=== PATIENT | male | born 1995 | race Caucasian/White ===

== ENCOUNTER 2019-05-04 08:19 | Emergency (ER) | payer OTHER, SELFPAY ==
[2019-05-04 08:24] VITALS: BP 117/67; PULSE 88; RESP 12; TEMP 36.7; O2SAT 98
--- NOTE | 2019-05-04 08:39 | W.ED.GENAD ---
Discharge Plan Disposition Patient Disposition: HOME Condition: Stable Discharge Details Chief Complaint: Orthopedic Clinical Impression: Fracture of fifth metacarpal bone of right hand Primary Care Provider: Karo Hogan ED Provider: Yordy Johnson Home Meds and New Rx's Prescriptions: No Action No Known Home Meds RF: 0 Discharge Instructions Additional Instructions: 1. Drink plenty of fluids. 2. Continue all medications as prescribed. 3. Acetaminophen 1000mg every 4 hours (up to 5 time a day) and/or ibuprofen 600mg every 6 hours as needed for fever or pain. 4. Wear splint until orthopedic evaluation. Keep arm elevated. Avoid getting splint wet. Return to the Emergency Department (ED) if your condition worsens, does not improve as expected, or for ANY other concerns. Specifically, return if you have new or uncontrolled pain, worsening fever, difficulty breathing, vomiting, or are unable to drink fluids. Referrals: Francisco Mccloud MD [ [facility] STAFF PHYSICIAN] - Medical Decision Making Presents with right hand injury sustained at work. Exam and imaging consistent with a displaced fifth metacarpal fracture. Fracture reduced after ultrasound-guided regional anesthesia placed. Repeat x-ray document improved anatomic alignment. Discharged with a plan for outpatient orthopedic follow-up. Given usual and customary return instructions prior to discharge. Medical Records Medical records reviewed: Yes I reviewed the patient's medical records. Imaging Data Radiologic Study: Attestation: I personally reviewed and interpreted this imaging study as follows: Imaging: X-Ray (Right hand) My impression: Angulated distal fifth metacarpal fracture. Interpreted independently contemporaneously by myself. Radiologist's impression: Not available at time of clinical management/fracture reduction Radiologic Study #2: Attestation: I personally reviewed and interpreted this imaging study as follows: Imaging: X-Ray (Right hand, postreduction) My impression: Improved anatomical alignment. Reviewed independently contemporaneously by myself. Radiologist's impression: Same HPI 23-year-old gent with an unremarkable past medical history presents for evaluation of injury sustained at work this morning. He had a crush injury to his right hand with significant pain to his metacarpal phalangeal joints especially at the pinky finger. He has no significant deformity although he has superficial abrasions along the dorsal aspect of his fingers. He has focal pain at his pinky MCPJ. He denies other significant injury and he denies any loss of motion/loss of sensation distally. Flexion/extension is limited by pain. General Date/Time Provider Initiated Documentation: 05/04/19 08:33. Related Data Home Medications Medication Instructions Recorded Confirmed Unknown [No Known Home Meds] 07/01/13 05/04/19 Allergies Allergy/AdvReac Type Severity Reaction Status Date / Time No Known Allergies Allergy Unverified 05/04/19 08:26 General Stated Complaint: Orthopedic SAMANTHA: 4 Review of Systems All systems reviewed & are unremarkable except as noted in HPI and below PFSH Social History Smoking/Tobacco Use Status: Never Alcohol Intake: never Drug use: Never Substance use type: does not use Do you feel safe at home: Yes Do you feel safe in your relationship?: Yes Exam Narrative Exam Narrative: Nursing note and vital signs have been reviewed and noted. GENERAL: alert, active, no acute distress, well -hydrated, well-nourished HEENT: atraumatic/normocephalic, PERRLA, EOMI, conjunctiva clear, external ears/canals normal, nasal mucosa normal NECK: supple, full range of motion CARDIOVASCULAR: nl pulses, no edema PULMONARY: nl effort, no audible wheezing or stridor ABDOMEN: non-distended EXTREMITY: normal muscle tone, all joints with FROM, right hand: Minimal tenderness along the MCP joints except for at the pinky with significant tenderness at the joint and proximally along the metacarpal. No significant soft tissue swelling or ecchymosis. There are multiple superficial abrasions along the dorsal aspect of the phalanxes. No evidence of tendon disruption by passive and active exam. Also normal neurovascular exam distal to the injury. NUERO: normal mentation, moving all extremities, normal stance and gait, PSYCH: alert and oriented SKIN: no new rashes or lesions Course Vital Signs Vital signs: Vital Signs Temperature 98.1 F 05/04/19 08:24 Pulse 88 05/04/19 08:24 Respiratory Rate 12 05/04/19 08:24 Blood Pressure 117/67 05/04/19 08:24 Pulse Oximetry 98 05/04/19 08:24 Temperature 98.1 F 05/04/19 08:24 Temperature Source Temporal Artery Scan 05/04/19 08:24 Pulse 88 05/04/19 08:24 Respiratory Rate 12 05/04/19 08:24 Respiratory Effort Non-Labored 05/04/19 08:25 Blood Pressure 117/67 05/04/19 08:24 Blood Pressure Position Sitting 05/04/19 08:24 Pulse Oximetry 98 05/04/19 08:24 Oxygen Delivery Method Room Air 05/04/19 08:24 Oxygen Flow Rate 0 05/04/19 08:24 Pain Level 8 05/04/19 08:26 Procedures Orthopedic Fracture Reduction Fracture #1: Time Out Performed: Yes Side: right Fracture Reduction Location: metacarpal (Fifth) Analgesia: other (Ulnar nerve block) Technique: direct manipulation Post Reduction X-rays Demonstrate: acceptable reduction Post-reduction neuro exam: intact Post-reduction vascular exam: intact Splint Applied: Yes Patient Tolerated Procedure: well Other Description: Ultrasound-guided ulnar nerve block. Ulnar nerve and surrounding structures in the right forearm were visualized sonographically. Both the transducer and skin were prepped in sterile fashion. 0.5% bupivacaine used for local anesthesia at the skin surface. A 27-gauge needle was used to place 8 cc of bupivacaine immediately adjacent to the ulnar nerve. Excellent regional anesthesia achieved. No complications. Patient tolerated the procedure well. Ultrasound images obtained and saved.
--- NOTE | 2019-05-04 08:40 | DI.RAD_ITS ---
EXAM: XR HAND RT COMPLETE INDICATION: Crush injury, rule out fracture. COMPARISON: No exams were available for comparison TECHNIQUE: 2D digital imaging was performed. FINDINGS: There is a fracture of the distal 5th metacarpal. There is ventral angulation at and mild ventral d isplacement. No additional fractures are seen. IMPRESSION: Fracture of the distal 5th metacarpal.
[2019-05-04] MEDS: Bupivacaine 0.5% Pres-Free 30 ML VIAL (09:20)
--- NOTE | 2019-05-04 10:18 | DI.RAD_ITS ---
EXAM: XR HAND RT LIMITED INDICATION: post reduction lateral. COMPARISON: No exams were available for comparison TECHNIQUE: 2D digital imaging was performed. FINDINGS: A splint has been placed along the lateral aspect of the hand and wrist. There is some improvement i n the alignment of the previously noted distal 5th metacarpal. I
== END 2019-05-04 10:54 | disposition home or self-care (01) ==
PROVIDERS: Emergency Provider Emergency Medicine; PCP Family Medicine
DX: S67.21XA Crushing injury of right hand, initial encounter (principal); S62.336A Displaced fracture of neck of fifth metacarpal bone, right hand, initial encounter for closed fracture; W23.1XXA Caught, crushed, jammed, or pinched between stationary objects, initial encounter
CPT/HCPCS: 26600; 73120; 73130

== ENCOUNTER 2019-05-17 11:19 | Outpatient (CLI) | payer OTHER, SELFPAY ==
--- NOTE | 2019-05-17 11:37 | DI.RAD_ITS ---
EXAM: XR HAND RT LIMITED CLINICAL HISTORY: fifth metacarpal fracture TECHNIQUE: COMPARISON: XR HAND RT LIMITED from 05/04/2019 FINDINGS: Four views were obtained. The wrist is in an ulnar splint. Previously described fracture the 5th me tacarpal again noted with no gross interval change in alignment of the fracture fragments comparison with examination May 04. IMPRESSION:
== END 2019-05-17 11:39 ==
PROVIDERS: PCP Family Medicine; Visit Provider Physician Assistant
DX: S62.336D Displaced fracture of neck of fifth metacarpal bone, right hand, subsequent encounter for fracture with routine healing (principal)
CPT/HCPCS: 73120

== ENCOUNTER 2020-02-05 17:36 | Emergency (ER) | payer OTHER, SELFPAY ==
[2020-02-05 17:42] VITALS: BP 129/78; PULSE 75; RESP 20; TEMP 36.8; O2SAT 99
[2020-02-05] MEDS: Lidocaine/Epinephri/Tetracaine Topical Gel 3 ML TP (18:10)
--- NOTE | 2020-02-05 18:48 | ED.GENADUL_ITS ---
Discharge Plan Disposition Patient Disposition: HOME Condition: Good Discharge Details Clinical Impression: Laceration of left index finger Primary Care Provider: Karo Hogan ED Provider: Razia Thacker Home Meds and New Rx's Prescriptions: No Action No Known Home Meds RF: 0 Discharge Instructions Instructions: Finger Laceration (ED) Additional Instructions: Keep dressing dry for the first day. Then can wash daily with warm soapy water rinse completely pat dry apply dry sterile dressing and antibiotic ointment to protect if needed Report signs of infection including redness fever drainage pain immediately. Return in 7 to 10 days for suture removal Your tetanus status was updated on this visit Stand Alone Forms: Work Release Referrals: Provider,Temporary [ [facility] STAFF PHYSICIAN] - (return to ED in 7-10 days for suture removal) Medical Decision Making LET applied to wound. Further anesthetized with 1% lidocaine. Wound irrigated with copious amounts of saline, wound bed with no debris or foreign body. Wound is well approximated with no jagged edges. Closes easily using 4, 4/0 Ethilon sutures. Cleaned by nursing with Xeroform and dry dressing applied. Tetanus is updated on this visit. Wound care instructions and return to ED for suture removal in 7 to 10 days HPI General Mode of arrival: ambulatory . Date/Time Provider Initiated Documentation: 02/05/20 17:43 . Limitations to Documentation: no limitations . Information obtained by: patient . HPI Narrative: Laceration to lateral aspect of left index finger while trying to clean a chicken. Bleeding is controlled on arrival. Last tetanus updated at 2008 Related Data Home Medications Medication Instructions Recorded Confirmed Unknown [No Known Home Meds] 07/01/13 02/05/20 Allergies Allergy/AdvReac Type Severity Reaction Status Date / Time No Known Allergies Allergy Unverified 02/05/20 17:46 General Stated Complaint: Laceration SAMANTHA: 4 Review of Systems Constitutional Constitutional: Denies fever(s) Integumentary/Breasts Skin/Breast: Reports lesions (2 cm laceration to left index finger) COUNTS INCLUDE 234 BEDS AT THE [facility] Social History Smoking/Tobacco Use Status: Never Alcohol Intake: current Alcohol Intake frequency: a few times a week Drug use: Never Substance use type: does not use Do you feel safe at home: Yes Do you feel safe in your relationship?: Yes Exam Const General: cooperative, healthy appearing, comfortable and no acute distress Nutritional Appearance: average body habitus Orientation: alert, awake and oriented x3 Skin Trauma: laceration (2 cm laceration to the lateral aspect the left index finger.) Course Vital Signs Vital signs: Vital Signs Temperature 36.8 C 02/05/20 17:42 Pulse 75 02/05/20 17:42 Respiratory Rate 20 02/05/20 17:42 Blood Pressure 129/78 02/05/20 17:42 Pulse Oximetry 99 02/05/20 17:42 Temperature 36.8 C 02/05/20 17:42 Pulse 75 02/05/20 17:42 Respiratory Rate 20 02/05/20 17:42 Respiratory Effort Non-Labored 02/05/20 17:44 Blood Pressure 129/78 02/05/20 17:42 Blood Pressure Position Sitting 02/05/20 17:42 Pulse Oximetry 99 02/05/20 17:42 Oxygen Delivery Method Room Air 02/05/20 17:42 Oxygen Flow Rate 0 02/05/20 17:42 Pain Level 4 02/05/20 17:42
== END 2020-02-05 19:00 | disposition home or self-care (01) ==
LOC: ER 19:25
PROVIDERS: Emergency Provider Nurse Practitioner Acute Care; PCP Family Medicine
DX: S61.211A Laceration without foreign body of left index finger without damage to nail, initial encounter (principal); W26.0XXA Contact with knife, initial encounter
CPT/HCPCS: 12001; 90471

== ENCOUNTER 2024-08-03 17:40 | Inpatient (IN) | payer MEDICAID, SELFPAY ==
[2024-08-03] VITALS (56 sets, daily range): BP systolic 109–137; BP diastolic 51–79; PULSE 0–96; RESP 9–27; TEMP 36.5–37.1; O2SAT 94–99
--- NOTE | 2024-08-03 17:30 | RT.EKG_ITS ---
APPROVED REPORT Exam: Resting ECG Reason for Exam: Chest Pain Patient Location: E HR:71 bpm ECG Measurements Heart Rate 71 AXIS HI 132 P 35 QRSd 98 QRS 83 QT 375 T 45 QTc 409 Conclusion Sinus rhythm...normal P axis, V-rate 60- 99 Physician: No Stemi
--- NOTE | 2024-08-03 17:45 | DI.RAD_ITS ---
Exam(s) XR CHEST 2V PA LATERAL EXAM: XR CHEST 2V PA LATERAL CLINICAL HISTORY: Chest pain TECHNIQUE: 2D digital imaging was performed. Two views. COMPARISON: CR CHEST 2 VIEWS PA,LAT from 08/03/2012 FINDINGS: HEART: Normal size. Aorta: Not dilated. PULMONARY VASCULATURE: Normal. MEDIASTINUM: Unremarkable. LUNGS: Clear. PLEURAL SPACE: No pleural effusion or pneumothorax. BONE:Unremarkable for age. SOFT TISSUES: Unremarkable. IMPRESSION: No acute abnormality. DATA REPOSITORY: RADIATION DOSE DELIVERED:
--- NOTE | 2024-08-03 18:05 | ED.GENADUL_ITS ---
Discharge Plan Disposition Patient Disposition: Admit to [facility] Condition: Stable Discharge Details Clinical Impression: Elevated troponin I level, Chest pain Admit Date/Time: 08/03/24 22:16 Admit Provider: Jimmy Ching Attending Provider: Jimmy Ching Primary Care Provider: Karo Hogan ED Provider: Alisa Smith [facility] General Mode of arrival: ambulatory . Date/Time Provider Initiated Documentation: 08/03/24 17:41 . Limitations to Documentation: no limitations . Information obtained by: patient, RN notes reviewed and old records reviewed . HPI Narrative: 29-year-old male presents to the ER with a chief complaint of chest pain which began this morning. Describes it as midsternal radiates up into his neck, it is intermittent and comes and goes. He reports that this morning he did feel lightheaded with the episode. He also reports another episode that happened this afternoon that caused him to feel nauseous. He also describes it as makes your spit stringy. Denies any abdominal pain nausea vomiting or diarrhea. He does endorse vaping. He did endorse alcohol 4 days ago none recently. Denies any drugs. Denies any recent injuries to his chest or abdomen. He does report heavy lifting at the gym. Related Data Home Medications ?Medication ?Instructions ?Recorded ?Confirmed Unknown [No Known Home Meds] 07/01/13 08/03/24 Allergies Allergy/AdvReac Type Severity Reaction Status Date / Time No Known Allergies Allergy Unverified 08/03/24 17:49 General Stated Complaint: Chest Pain SAMANTHA: 3 Review of Systems All systems reviewed & are unremarkable except as noted in HPI and below Cardiovascular Cardiovascular: Reports as per HPI, Reports chest pain and Reports radiating jaw, neck or arm pain Exam Narrative Exam Narrative: Constitutional: Alert and oriented x3. Appears stated age. Normal body habitus. Head: Normocephalic, no trauma. Eyes: Pupils PERRL, Red reflex noted, EOM's intact. Eyelids symmetrical without lesions, discharge, or swelling. ENT: Bilateral TM's WNL, External ear normal to inspection, no mastoid TTP, swelling, or erythema, Nasal turbinates WNL, no nasal discharge. Normal d entition, Posterior pharynx WNL, no exudate. Chest: RRR, Normal S1, S2, distal pulses intact. No murmurs auscultated. No rubs no gallops. Resp: Lungs clear to auscultation bilaterally, no wheezes, rales, or rhonchi. Abdomen: Soft, non-distended, Normoactive bowel sounds all 4 quads. Musculoskeletal: Normal gait, Moves all 4 extremities without difficulty. Skin: No suspicious rashes or lesions. Capillary refill less than 2 sec. Neurologic: Cranial nerves II-XII intact. Alert and oriented x 3. Motor: No deficits noted. Sensory: Intact bilaterally all 4 extremities. Hematologic/Lymphatic: No ecchymosis, no lymphadenopathy. Course Vital Signs Vital signs: Vital Signs Temperature 37.1 C 08/03/24 17:45 Pulse 74 08/03/24 17:45 Respiratory Rate 14 08/03/24 17:45 Blood Pressure 137/74 08/03/24 17:45 Pulse Oximetry 99 08/03/24 17:45 Temperature 37.1 C 08/03/24 17:45 Temperature Source Oral 08/03/24 17:45 Pulse 74 08/03/24 17:45 Respiratory Rate 14 08/03/24 17:45 Blood Pressure 137/74 08/03/24 17:45 Blood Pressure Position Sitting 08/03/24 17:45 Pulse Oximetry 99 08/03/24 17:45 Oxygen Delivery Method Room Air 08/03/24 17:45 Oxygen Flow Rate 0 08/03/24 17:45 Pain Level 4 08/03/24 17:45 Medical Decision Making 29-year-old male presents to the ER with a chief complaint of chest pain which began this morning. Describes it as midsternal radiates up into his neck, it is intermittent and comes and goes. He reports that this morning he did feel lightheaded with the episode. He also reports another episode that happened this afternoon that caused him to feel nauseous. He also describes it as makes your spit stringy. Denies any abdominal pain nausea vomiting or diarrhea. He does endorse vaping. He did endorse alcohol 4 days ago none recently. Denies any drugs. Denies any recent injuries to his chest or abdomen. He does report heavy lifting at the gym. Cardiac workup ordered including serial troponins, D-dimer CBC CMP lipase chest x-ray. Differential diagnose includes not limited to musculoskeletal strain, GERD, costochondritis, CAD, PE, URI. EKG was reviewed by Dr. Carrero and myself ER attending, no old EKG available for review. No STEMI. 1858: Initial troponin has come back extremely elevated at 14,270, labs added on including procalcitonin, CRP, ESR, blood cultures, CTA thorax and abdomen. No white count, lipase within normal limits, chest x-ray also within normal limits. Differential includes dissecting aneurysm, coronary artery spasm, coronary artery dissection, myocarditis,. 1958: On patient reevaluation he has no complaints of return of chest pain, discussed his initial elevated troponin and the rest of his workup he verbalized understanding. Denies any cocaine or drug use, he reports that he did have a sore throat on Thursday which has subsided since then. Denies any fevers or chills or infectious type symptoms. Repeat Trop 14,265 Repeat EKG order, POCUS exam for focused cardiac exam ordered. Will consult with cardiology. 2017: [facility] transfer center called to speak with cardiology. Dr. Carrero and myself at bedside for POCUS focused cardiac exam. Appears within normal limits please see his procedure note. Repeat EKG is normal sinus rhythm no ectopy no ST elevation no signs of NSTEMI. 2109: Spoke with Dr. Villeda With [facility] cardiology, discussed patient case and details, he is to call me back. Of note upon further questioning patient reports that he has actually had 3 episodes of this chest pain first 1 this morning that woke him up second 1 was while he was laying on the couch and the third 1 was during physical activity of intercourse. 2124: Spoke again with Dr. Villeda who recommends transfer to [facility] and Heparin gtt. Accepting Dr. Garcia he will be listed for tomorrow. 2128: Heparin gtt ordered, Hospitalist paged. 2156: Spoke with Dr. Hopkins who agrees to accept patient pending Transfer to [facility] tomorrow. Third troponin were elevated at 15,381. Patient to be excepted and transferred up to the floor on heparin drip, in hemodynamically stable condition at this time are a 69 O2 sat 97% on room air blood pressure 126/79. This text was generated using 5 Minutesation system, please disregard any oddities of phrase or misspellings. Medical Records Medical records reviewed: Yes I reviewed the patient's medical records. Imaging Data Radiologic Study: Imaging: CT Scan Radiologist's impression: Heart: No right ventricular strain. No pericardial effusion. ABDOMEN AND PELVIS: Liver: No mass. Gallbladder and biliary ducts: Unremarkable. No calcified stones. No ductal dilation. Pancreas: Unremarkable. No mass. No ductal dilation. Spleen: Unremarkable. No splenomegaly. Adrenal glands: Unremarkable. No mass. Kidneys and ureters: No hydronephrosis. No calcified renal or ureteral stones. No perinephric stranding or perinephric fluid. Stomach and bowel: Unremarkable. No obstruction. No mucosal thickening. Appendix: Normal appendix. Intraperiton eal space: Unremarkable. No free air. No significant fluid collection. Urinary bladder: Unremarkable. No mass. Reproductive: Unremarkable as visualized. Lymph nodes: No enlarged lymph nodes. Bones/joints: Unremarkable for patient age. Soft tissues: Unremarkable. IMPRESSION: 1. Normal caliber thoracic / abdominal aorta without dissection or aneurysm. 2. No evidence of acute pulmonary embolism. 3. No acute pulmonary infiltrate or pleural fluid collection. 4. No acute intra-abdominal or pelvic process. Thank you for allowing us to participate in the care of your patient. Dictated and Authenticated by: Serafin Woods MD Lab Data Lab results reviewed: Yes I reviewed the patient's lab results. Labs: 08/03/24 19:51 Blood Blood Culture - Pending 08/03/24 19:27 Blood Blood Culture - Pending Laboratory Tests Range/Units 08/03/24 08/03/24 18:25 19:27 WBC (4.4-10.8) 10^3/uL 8.05 RBC (4.36-5.78) 10^6/uL 4.87 Hgb (13.5-17.5) g/dL 15.2 Hct (40.0-50.0) % 45.0 MCV (80-95) fL 92 MCH (27.0-33.0) pg 31.2 MCHC (32.0-36.0) % 33.8 RDW (11.8-14.1) % 11.9 Plt Count (130-400) 10^3/uL 190 MPV (8.0-11.0) fL 10.5 Immature Gran % % 0.2 Neutrophils % % 74.8 Lymphocytes % % 13.9 Monocytes % % 9.4 Eosinophils % % 1.5 Basophils % % 0.2 Nucleated RBC % (0.0-0.3) % 0.0 Absolute Neutrophils (1.2-6.7) 10^3/uL 6.01 Absolute Lymphocytes (1.2-3.4) 10^3/uL 1.12 L Absolute Monocytes (0.1-0.8) 10^3/uL 0.76 Absolute Eosinophils (0.0-0.7) 10^3/uL 0.12 Absolute Basophils (0.0-0.2) 10^3/uL 0.02 ESR (0-15) mm/hr 2 D-Dimer (<500) ng/mlFEU 265 Sodium (136-145) mmol/L 143 Potassium (3.5-5.1) mmol/L 3.7 Chloride (98-107) mmol/L 106 Carbon Dioxide (21.0-32.0) mmol/L 28.5 Anion Gap (3-11) mmol/L 8.5 BUN (7-18) mg/dL 13 Creatinine (0.70-1.30) mg/dL 0.9 Est GFR (CKD-EPI 2020) (mL/min/1.73m2) 119.31 Glucose (74-106) mg/dL 118 H Calcium (8.5-10.1) mg/dL 9.1 Magnesium mg/dL 1.8 Total Bilirubin (0.2-1.0) mg/dL 0.4 AST (15-37) U/L 40 H ALT (16-63) U/L 45 Alkaline Phosphatase (46-116) U/L 62 Troponin I (<or=76) ng/L 72145 H* 21365 H* C-Reactive Protein (<or=0.5) mg/dL 0.93 H Total Protein (6.4-8.2) g/dL 6.9 Albumin (3.4-5.0) g/dL 3.8 Lipase (<78) U/L 40 Procalcitonin ng/mL < 0.10 Quality:SDOH Health Related Social Needs: No Data to Display PFSH All Active Problems (Updated 08/03/24 @ 22:48 by ELVIN HARRIS) Chest pain (Acute) Elevated troponin I level (Acute) Closed boxer's fracture (Acute 05/04/19) Social History Smoking/Tobacco Use Status: Current every day Tobacco Type: e-cigarettes Smoking risk assessment performed?: Yes Alcohol Intake: current Alcohol Intake frequency: a few times a week Drug use: Never Substance use type: does not use Do you feel safe at home: Yes Do you feel safe in your relationship?: Yes
[2024-08-03] MEDS: Aspirin 81 MG CHEW 324 MG CH (18:14)
[2024-08-03 18:35] LABS: Abs Immature Grans 0.02 10^3/uL (0.0-0.06); Absolute Basophil Count 0.02 10^3/uL (0.0-0.2); Absolute Eosinophil Count 0.12 10^3/uL (0.0-0.7); Absolute Lymphocyte Count 1.12 10^3/uL (1.2-3.4); Absolute Monocyte Count 0.76 10^3/uL (0.1-0.8); Absolute Neutrophil Count 6.01 10^3/uL (1.2-6.7); Basophils % 0.2 %; Eosinophils % 1.5 %; HGB 15.2 g/dL (13.5-17.5); Immature Grans % 0.2 %; Lymphocytes % 13.9 %; MCH 31.2 pg (27.0-33.0); MCHC 33.8 % (32.0-36.0); MCV 92 fL (80-95); MPV 10.5 fL (8.0-11.0); Monocytes % 9.4 %; Neutrophils % 74.8 %; Platelet Count 190 10^3/uL (130-400); RBC 4.87 10^6/uL (4.36-5.78); RDW 11.9 % (11.8-14.1); RDW-SD 40.2 fL; WBC 8.05 10^3/uL (4.4-10.8)
--- NOTE | 2024-08-03 18:45 | DI.CT_ITS ---
Exam(s) CT THORAX ABD/PEL CTA EXAM: CT THORAX ABD/PEL CTA CLINICAL HISTORY: Elevated troponin, chest pain. TECHNIQUE: Imaging Protocol: Axial CT angiography was performed with multi-slice acquisition and m ulti-planar and/or 3D reconstructions. CONTRAST MATERIAL: Intravenous: Omnipaque 350 Contrast volume:100 ml Oral: no COMPARISON: CR XR CHEST 2V PA LATERAL from 08/03/2024 FINDINGS: CHEST: Pulmonary Arteries: No evidence of filling defect to suggest pulmonary emboli. Tracheobronchial tree: Patent where visualized. Mediastinum and Colette: No dominant adenopathy or fluid collection. Pulmonary parenchyma: No consolidation or dominant measurable mass. No architectural distortion. Pleura: No effusion or pneumothorax. Heart: The heart is not dilated. No coronary artery calcifications are seen. Aorta: Thoracic aorta non-dilated. Bones: Chronic mild anterior wedging of the lower thoracic vertebral bodies. Tubes, Catheters, and Lines: None ABDOMEN AND PELVIS: Abdomen: Celiac axis/mesenteric arteries: No evidence of occlusion or significant stenosis. Renal Arteries: No evidence of occlusion or significant stenosis. There is a single renal artery per fusing each kidney. Aorta: No evidence of occlusion or significant stenosis. No aneurysm or dissection. Pelvis: Iliac Arteries: No evidence of occlusion or significant stenosis. Common Femoral Arteries: No evidence of occlusion or significant stenosis. ABDOMEN: Liver: Normal density. No measurable mass. Portal, Superior Mesenteric, and Splenic Veins: Unremarkable. Gallbladder and Biliary Tract: No radiodense calculus or dilation. Pancreas: Normal density, no abnormal calcifications or inflammatory process. Spleen: Normal. Adrenals: No masses seen. Kidneys: Normal size, contour and axis. No radiodense stones or obstructive uropathy. No masses seen. Bowel: No obstruction or bowel wall thickening. Appendix is unremarkable. Peritoneal Cavity: No ascites, collection or mesenteric inflammatory response. Lymph Nodes: Within normal limits. Bones: Unremarkable. Soft Tissues: Unremarkable. PELVIS: Bladder: Symmetric distention, no gross wall thickening. Reproductive Organs: Unremarkable as visualized. Lymph Nodes: Within normal limits. Bones: Within normal limits. IMPRESSION: Normal CT Angiogram of the chest, abdomen and pelvis. RADIATION DOSE DELIVERED: 966.18mGy.cm Total DLP DATA REPOSITORY: All CT scans at this facility are submitted to the National Radiology Data Registry (NRDR) Dose Index Registry (DIR) with the [employer] (ACR). RADIATION OPTIMIZATION: All CT scans at this facility use at least one of these dose optimization te chniques: automated exposure control; mA and/or kV adjustment per patient size (includes targeted exa ms where dose is matched to clinical indication); or iterative reconstruction.
[2024-08-03 18:54] LABS: ALT 45 U/L (16-63); AST 40 U/L (15-37); Albumin 3.8 g/dL (3.4-5.0); Alkaline Phosphatase 62 U/L (46-116); Anion Gap 8.5 mmol/L (3-11); BUN 13 mg/dL (7-18); Bilirubin, Total 0.4 mg/dL (0.2-1.0); CO2 28.5 mmol/L (21.0-32.0); CREATININE 0.9 mg/dL (0.70-1.30); Calcium 9.1 mg/dL (8.5-10.1); Chloride 106 mmol/L (98-107); Estimated GFR 119.31 (mL/min/1.73m2); Glucose 118 mg/dL (74-106); Lipase 40 U/L (<78); Magnesium 1.8 mg/dL; Potassium 3.7 mmol/L (3.5-5.1); Sodium 143 mmol/L (136-145); Total Protein 6.9 g/dL (6.4-8.2)
[2024-08-03 18:55] LABS: Troponin I 14270 ng/L (<or=76)
[2024-08-03 19:00] LABS: D-Dimer 265 ng/mlFEU (<500)
[2024-08-03] MEDS: Omnipaque 350 MG/ML 100 ML BTL IJ (19:17)
[2024-08-03] MEDS: Normal Saline - Diluent 50 ML VIAL IJ (19:18)
[2024-08-03 19:27] LABS: ESR 2 mm/hr (0-15)
[2024-08-03 19:36] LABS: C-Reactive Protein 0.93 mg/dL (<or=0.5)
[2024-08-03 19:50] LABS: Procalcitonin < 0.10 ng/mL
[2024-08-03 19:59] LABS: Troponin I 14265 ng/L (<or=76)
--- NOTE | 2024-08-03 20:00 | RT.EKG_ITS ---
APPROVED REPORT Exam: Resting ECG Reason for Exam: Repeat Patient Location: E HR:75 bpm ECG Measurements Heart Rate 75 AXIS VT 127 P 39 QRSd 102 QRS 96 QT 389 T 39 QTc 434 Conclusion Sinus rhythm...normal P axis, V-rate 60- 99 Physician: no stemi
--- NOTE | 2024-08-03 20:37 | DI.VRAD_ITS ---
PROCEDURE INFORMATION: Exam: CTA Chest With Contrast CTA Abdomen and Pelvis With Contrast Exam date and time: 08/03/2024 7:15 PM Age: 29 years old Clinical indication: Elevated troponin, chest pain TECHNIQUE: Imaging protocol: Computed tomographic angiography of the chest with contrast. Exam focused on the arteries. Computed tomographic angiography of the abdomen and pelvis with contrast. Exam focused on the arteries. 3D rendering (Not supervised by radiologist): MIP and/or 3D reconstructed images were created by the technologist. Contrast material: OMNIPAQUE 350; Contrast volume: 100 ml; Contrast route: INTRAVENOUS (IV); COMPARISON: CR XR CHEST 2V PA LATERAL 08/03/2024 6:39 PM FINDINGS: VASCULATURE: Pulmonary arteries: No evidence of acute pulmonary embolism. Aorta: Normal caliber thoracic / abdominal aorta without dissection or aneurysm. Celiac trunk and mesenteric arteries: No occlusion or significant stenosis. Renal arteries: No occlusion or significant stenosis. Right iliac arteries: No occlusion or significant stenosis. Left iliac arteries: No occlusion or significant stenosis. CHEST: Lungs: No acute alveolar or ground glass infiltrate. Pleural spaces: No pleural fluid collection. No pneumothorax. Heart: No right ventricular strain. No pericardial effusion. ABDOMEN AND PELVIS: Liver: No mass. Gallbladder and biliary ducts: Unremarkable. No calcified stones. No ductal dilation. Pancreas: Unremarkable. No mass. No ductal dilation. Spleen: Unremarkable. No splenomegaly. Adrenal glands: Unremarkable. No mass. Kidneys and ureters: No hydronephrosis. No calcified renal or ureteral stones. No perinephric stranding or perinephric fluid. Stomach and bowel: Unremarkable. No obstruction. No mucosal thickening. Appendix: Normal appendix. Intraperitoneal space: Unremarkable. No free air. No significant fluid collection. Urinary bladder: Unremarkable. No mass. Reproductive: Unremarkable as visualized. Lymph nodes: No enlarged lymph nodes. Bones/joints: Unremarkable for patient age. Soft tissues: Unremarkable. IMPRESSION: 1. Normal caliber thoracic / abdominal aorta without dissection or aneurysm. 2. No evidence of acute pulmonary embolism. 3. No acute pulmonary infiltrate or pleural fluid collection. 4. No acute intra-abdominal or pelvic process. Dictated and Authenticated by: Serafin Woods MD. Orderin Luis Cuellar MD
--- NOTE | 2024-08-03 20:38 | W.EDPROG ---
Date of service: 08/03/24 Time of Service: 20:39 Medical Decision Making I was asked to consult on patient with Nati Tanvir. Patient came in for chest pain. EKG shows no evidence of STEMI. Laboratory workup returned demonstrating no white count or bandemia, with minimal lymphopenia. D-dimer was normal. Troponin was notably elevated at 14,270. Repeat EKG continues to demonstrate stability. Patient was reassessed, he states that he did have a mild sore throat and viral URI-like symptoms over the last 3 to 4 days but feels much better now. ESR and CRP were ordered, ESR was normal, CRP is minimally elevated at 0.9. Procalcitonin normal at less than 0.1. Pending COVID flu and RSV test. Bedside POCUS was performed, and he shows no evidence of pericardial effusion or significant wall motion abnormality. Concern for viral myocarditis. Auscultation reveals no murmur or significant friction rub that I can hear. Will consult [facility] cardiology. Symptoms appear clinically inconsistent with STEMI. Unlikely to be unstable angina with his current symptomatology, however it does remain on the differential. Scad less likely with no pain at this point, and no EKG findings. Dissection and PE on the differential, however CTA was ordered and shows no acute pathology. Patient denies any IV or illicit drug use, bacterial Dawood/endocarditis less likely. Case discussed with [facility]. They recommend heparinization and admission. Patient will be admitted for further management. I independently performed a history and physical examination of the patient and discussed the management with the midlevel provider. I agree with the current plan of management at the time of signing. Quality:SDOH Health Related Social Needs: No Data to Display Critical Care Time Critical Care Time Critical Care Time: Yes Total Critical Care Time: 45 Attestation: Upon my evaluation, this patient had a high probability of imminent or life-threatening deterioration, which required my direct attention, intervention, and personal management. I have personally provided 45 minutes of critical care time exclusive of time spent on separately billable procedures. Time includes review of laboratory data, radiology results, discussion with consultants, and monitoring for potential decompensation. Interventions were performed as documented. Discharge Plan Disposition Patient Disposition: Admit to [facility] Condition: Stable Discharge Details Clinical Impression: Elevated troponin I level, Chest pain Admit Date/Time: 08/03/24 22:16 Admit Provider: Jimmy Ching Attending Provider: Jimmy Ching Primary Care Provider: Karo Hogan ED Provider: Alisa Smith POCUS Exam (ED) Limited Cardiac Exam DATE OF EXAM: 08/03/24 TIME OF EXAM: 20:38 PROVIDER THAT PERFORMED THE STUDY: Jim Carrero IS THIS A REPEAT EXAM DURING THIS ENCOUNTER: no REASON FOR EXAM: Chest pain VISUALIZED STRUCTURES: Left atrium, Left ventricle, Right ventricle, Aortic valve, Mitral valve and Interventricular septum VIEW OBTAINED: Apical 4-Chamber, Parasternal long-axis and Parasternal short-axis PERTINENT FINDINGS/IMPRESSION: No apparent abnormalities Exam complete
[2024-08-03 21:42] LABS: COVID-19 PCR Negative (Negative); Influenza A PCR Negative (Negative); Influenza B PCR Negative (Negative); RSV PCR Negative (Negative)
[2024-08-03 21:43] LABS: Source Nasopharynx
[2024-08-03 21:51] LABS: INR 1.1 (0.9-1.1); PTT Activated 25.6 sec (20.6-30.2)
[2024-08-03 21:57] LABS: Troponin I 15381 ng/L (<or=76)
--- NOTE | 2024-08-03 22:09 | HPE_ITS ---
Date of service: 08/03/24 Time of Service: 22:09 Assessment and Plan Assessment and plan (1) Atypical chest pain: Start date: 08/03/24 Status: Acute Assessment and plan: This is a 29-year-old gentleman with no significant past medical history presenting with atypical chest pain which is retrosternal and radiating into his neck occurring while asleep or at rest and lastly occurring during sexual intercourse. He is with self resolving but persistent over 30 minutes. He had associated nausea but no other associated symptoms. After evaluation, patient was placed on IV heparin because of markedly elevated troponins no EKG did not show any acute STEMI and no repeated chest pain during his ED visit. Chest pain was significant being 8 out of 10. It is sharp in nature. Gallbladder disease could be considered but he has no Crum sign and CT of the abdomen is benign. He was placed on IV heparin infusion after aspirin loading dose at the recommendation of [facility] cardiology. He will be excepted in transfer to Dr. Garcia's service in the morning when bed is available. He will remain on heparin infusion with close monitoring. He is a full code. (2) Elevated troponin I level: Start date: 08/03/24 Status: Acute Assessment and plan: Troponin elevation is significant and slightly increasing with trending overnight. If recurrent chest pain, repeat EKG and reevaluate for more immediate transfer. Fasting lipids will be checked in the morning. He does smoke tobacco but has no other risk factors for heart disease with no history of hypertension or significant family history. History of Present Illness History of Present Illness Chief Complaint: Acute onset of chest pain. N arrative: This is a 29-year-old male patient who awakened the morning of admission he with 8/10 substernal chest pain radiating into his neck with slight nausea and no other associated symptoms denying diaphoresis for dizziness. He then had another episode similar to this while sitting on the couch which was less severe. He had a third occurrence while having intercourse which is similar to the first episode. Also resolved with only after about 30 minutes. He has had a recent sore throat with no fever or signs of infection. 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 He does vape and occasionally smokes cigars. His family history is not significant for heart disease at a early age. In the ED, POCUS of the heart did not reveal any pericardial effusion and EKG was normal sinus rhythm with slight intraventricular conduction delay but no acute ST-T changes with the inferior ST segments slightly elevated with low QRS volume in lead III. This persisted without change on repeat EKG. Patient was not having chest pain at time EKGs. Troponin was markedly elevated in the ED and slightly increasing but appearing to plateau. These will be trended. CTA of the chest did not reveal any significant findings with normal vasculature and no dissections. Patient CRP was mildly elevated procalcitonin was negative. TSH was normal. There was no elevated WBC. The patient was initiated on loading dose of aspirin and heparin fusion per protocol after consultation with [facility] cardiology, Dr. Villeda. He was accepted in transfer in the morning to cardiology service under Dr. Mcdermott for further evaluation. He will be in the ICU for close monitoring and trending of troponins. Urine drug screen is still pending. Patient denies any illicit drug use. He is on no chronic medical therapy and has been generally healthy and normally active with no weight gain or peripheral edema. He is a full code. Review of Systems Narrative: 13 point review of systems otherwise unrevealing or stable. [facility] All Active Problems (Updated 08/04/24 @ 00:52 by Jimmy Ching) Atypical chest pain (Acute) Chest pain (Acute) Elevated troponin I level (Acute) Closed boxer's fracture (Acute 05/04/19) Social History Smoking/Tobacco Use Status: Current every day Tobacco Type: e-cigarettes Smoking risk assessment performed?: Yes Alcohol Intake: current Alcohol Intake frequency: a few times a week Drug use: Never Substance use type: does not use Housing: house Do you feel safe at home: Yes Do you feel safe in your relationship?: Yes Meds Allergies and Home Medications Allergies Allergy/AdvReac Type Severity Reaction Status Date / Time No Known Allergies Allergy Unverified 08/03/24 17:49 Home Medications ?Medication ?Instructions ?Recorded ?Confirmed ?Type Unknown [No Known Home Meds] 07/01/13 08/03/24 History Exam Narrative Exam Narrative: General: Patient is appropriate for age, alert and oriented x 3 and in no acute distress. HEENT: Normocephalic, eyes with pupils equal and reactive to light symmetrically, extraocular movement intact and sclera anicteric. Oropharynx with moist mucosa and normal dentition. Neck: Supple without JVD. Back: Normal posture. Lungs: Clear to auscultation percussion with no focalizing rales or rhonchi. No expiratory wheeze. Heart: Regular rate and rhythm with no murmurs or gallops appreciated. Abdomen: Scaphoid contour, soft and nontender to palpation with no palpable hepatosplenomegaly. Negative Crum sign. Bowel sounds positive all quadrants. Genitalia/rectal: Exam deferred. Extremities: Without clubbing, cyanosis or pitting edema. Peripheral pulses intact. Skin: Normal color, warm and dry. Neuro: Cranial nerve II to XII gross intact, no focalized motor deficits. No tremor. Psych: Normal affect and mood. No abnormal thought processes. Remote and recent memory intact. Results Imaging Imaging Studies: Exam: CTA Chest With Contrast CTA Abdomen and Pelvis With Contrast Exam date and time: 08/03/2024 7:15 PM Age: 29 years old Clinical indication: Elevated troponin, chest pain TECHNIQUE: Imaging protocol: Computed tomographic angiography of the chest with contrast. Exam focused on the arteries. Computed tomographic angiography of the abdomen and pelvis with contrast. Exam focused on the arteries. 3D rendering (Not supervised by radiologist): MIP and/or 3D reconstructed images were created by the technologist. Contrast material: OMNIPAQUE 350; Contrast volume: 100 ml; Contrast route: INTRAVENOUS (IV); COMPARISON: CR XR CHEST 2V PA LATERAL 08/03/2024 6:39 PM FINDINGS: VASCULATURE: Pulmonary arteries: No evidence of acute pulmonary embolism. Aorta: Normal caliber thoracic / abdominal aorta without dissection or aneurysm. Celiac trunk and mesenteric arteries: No occlusion or significant stenosis. Renal arteries: No occlusion or significant stenosis. Right iliac arteries: No occlusion or significant stenosis. Left iliac arteries: No occlusion or significant stenosis. CHEST: Lungs: No acute alveolar or ground glass infiltrate. Pleural spaces: No pleural fluid collection. No pneumothorax. Heart: No right ventricular strain. No pericardial effusion. ABDOMEN AND PELVIS: Liver: No mass. Gallbladder and biliary ducts: Unremarkable. No calcified stones. No ductal dilation. Pancreas: Unremarkable. No mass. No ductal dilation. Spleen: Unremarkable. No splenomegaly. Adrenal glands: Unremarkable. No mass. Kidneys and ureters: No hydronephrosis. No calcified renal or ureteral stones. No perinephric stranding or perinephric fluid. Stomach and bowel: Unremarkable. No obstruction. No mucosal thickening. Appendix: Normal appendix. Intraperitoneal space: Unremarkable. No free air. No significant fluid collection. Urinary bladder: Unremarkable. No mass. Reproductive: Unremarkable as visualized. Lymph nodes: No enlarged lymph nodes. Bones/joints: Unremarkable for patient age. Soft tissues: Unremarkable. IMPRESSION: 1. Normal caliber thoracic / abdominal aorta without dissection or aneurysm. 2. No evidence of acute pulmonary embolism. 3. No acute pulmonary infiltrate or pleural fluid collection. 4. No acute intra-abdominal or pelvic process. Labs 08/03/24 18:25 08/03/24 18:25 Labs: Laboratory Results - last 24 hr 08/03/24 08/03/24 08/03/24 18:25 19:27 20:57 WBC 8.05 RBC 4.87 Hgb 15.2 Hct 45.0 MCV 92 MCH 31.2 MCHC 33.8 RDW 11.9 Plt Count 190 MPV 10.5 Immature Gran % 0.2 Neutrophils % 74.8 Lymphocytes % 13.9 Monocytes % 9.4 Eosinophils % 1.5 Basophils % 0.2 Nucleated RBC % 0.0 Absolute Neutrophils 6.01 Absolute Lymphocytes 1.12 L Absolute Monocytes 0.76 Absolute Eosinophils 0.12 Absolute Basophils 0.02 ESR 2 PT INR APTT D-Dimer 265 Sodium 143 Potassium 3.7 Chloride 106 Carbon Dioxide 28.5 Anion Gap 8.5 BUN 13 Creatinine 0.9 Est GFR (CKD-EPI 2020) 119.31 Glucose 118 H Calcium 9.1 Magnesium 1.8 Total Bilirubin 0.4 AST 40 H ALT 45 Alkaline Phosphatase 62 Troponin I 72644 H* 40148 H* C-Reactive Protein 0.93 H Total Protein 6.9 Albumin 3.8 Lipase 40 Procalcitonin < 0.10 COVID-19 Source Nasopharynx SARS-CoV-2 (PCR) Negative Influenza Type A (PCR) Negative Influenza Type B (PCR) Negative RSV (PCR) Negative 08/03/24 08/03/24 21:21 21:25 WBC RBC Hgb Hct MCV MCH MCHC RDW Plt Count MPV Immature Gran % Neutrophils % Lymphocytes % Monocytes % Eosinophils % Basophils % Nucleated RBC % Absolute Neutrophils Absolute Lymphocytes Absolute Monocytes Absolute Eosinophils Absolute Basophils ESR PT 11.0 INR 1.1 APTT 25.6 D-Dimer Sodium Potassium Chloride Carbon Dioxide Anion Gap BUN Creatinine Est GFR (CKD-EPI 2020) Glucose Calcium Magnesium Total Bilirubin AST ALT Alkaline Phosphatase Troponin I 36672 H* C-Reactive Protein Total Protein Albumin Lipase Procalcitonin COVID-19 Source SARS-CoV-2 (PCR) Influenza Type A (PCR) Influenza Type B (PCR) RSV (PCR) Last Vital Signs Temp 37.1 C 08/03/24 17:45 Pulse 74 08/03/24 20:20 Resp 15 08/03/24 20:20 BP 121/59 L 08/03/24 19:31 Pulse Ox 98 08/03/24 20:20 Time Spent Time spent with Patient: >75 minutes Time was spent: preparing to see the patient(eg.review tests), obtaining and/or reviewing separately otained hiistory, ordering medications,tests, procedures, referring, communicating with other health nurse healthcare manager, indepentently interpreting results, counseling the patient and care coordination
[2024-08-03] MEDS: Heparin in 0.45% NaCl 25,000 UNIT/250 ML BAG 10 UNIT IVINF (22:12)
--- NOTE | 2024-08-03 22:34 | W.PC.ACHO ---
Registration Status: Primary Language: Preferred Language: ED Information & Data Chief Complaint Chest Pain 08/03/24 18:06 Triage Note CP that started at 0300 this 08/03/24 17:45 morning starting in the sternum and radiating up into the throat, dizzy this morning- pain lasted about 45 mins to an hour- does not change with eating Most Recent Vital Signs Temperature 37.1 C 08/03/24 17:45 Temperature Source Oral 08/03/24 17:45 Pulse 74 08/03/24 20:20 Pulse 73 08/03/24 20:20 Respiratory Rate 15 08/03/24 20:20 Respiratory Effort Normal 08/03/24 18:28 Respiratory Depth Normal 08/03/24 18:28 Respiratory Pattern Normal 08/03/24 18:28 Blood Pressure 121/59 L 08/03/24 19:31 Blood Pressure Mean 79 08/03/24 19:31 Blood Pressure Position Sitting 08/03/24 17:45 Pulse Oximetry 98 08/03/24 20:20 Oxygen Delivery Method Room Air 08/03/24 17:45 Oxygen Flow Rate 0 08/03/24 17:45 Pain Level 4 08/03/24 18:28 Allergies No Known Allergies Allergy (Unverified 08/03/24 17:49) Precautions Isolation Standard precaution 08/03/24 17:48 Active Medications Generic Name Dose Route Start Last Admin Trade Name Abhishekq PRN Reason Stop Dose Admin Heparin Sodium/Sodium Chloride 25,000 unit in 250 mls @ 10 mls/hr 08/03/24 21:30 08/03/24 22:12 IVINF 1,000 units/hr INFUSION STEPH 10 mls/hr Administration Protocol 1,000 UNITS/HR Iohexol 100 ml 08/03/24 19:30 08/03/24 19:17 Omnipaque 350 Mg/Ml 100 Ml Btl IJ 09/02/24 23:59 100 ml DIRECTED STEPH Administration Sodium Chloride 50 ml 08/03/24 19:30 08/03/24 19:18 Normal Saline - Diluent 50 Ml Vial IJ 50 ml .FOR DI USE STEPH Administration IV IV Catheter Type [Right Peripheral IV Antecubital] IV Catheter Gauge [Right 18 Antecubital] Diagnostics 08/03/24 08/03/24 08/03/24 Range/Units 22:16 21:25 21:21 WBC (4.4-10.8) 10^3/uL RBC (4.36-5.78) 10^6/uL Hgb (13.5-17.5) g/dL Hct (40.0-50.0) % MCV (80-95) fL MCH (27.0-33.0) pg MCHC (32.0-36.0) % RDW (11.8-14.1) % Plt Count (130-400) 10^3/uL MPV (8.0-11.0) fL Immature Gran % % Neutrophils % % Lymphocytes % % Monocytes % % Eosinophils % % Basophils % % Nucleated RBC % (0.0-0.3) % Absolute Neutrophils (1.2-6.7) 10^3/uL Absolute Lymphocytes (1.2-3.4) 10^3/uL Absolute Monocytes (0.1-0.8) 10^3/uL Absolute Eosinophils (0.0-0.7) 10^3/uL Absolute Basophils (0.0-0.2) 10^3/uL ESR (0-15) mm/hr PT 11.0 (9.1-11.1) sec INR 1.1 (0.9-1.1) APTT 25.6 (20.6-30.2) sec D-Dimer (<500) ng/mlFEU Sodium (136-145) mmol/L Potassium (3.5-5.1) mmol/L Chloride (98-107) mmol/L Carbon Dioxide (21.0-32.0) mmol/L Anion Gap (3-11) mmol/L BUN (7-18) mg/dL Creatinine (0.70-1.30) mg/dL Est GFR (CKD-EPI 2020) (mL/min/1.73m2) Glucose (74-106) mg/dL Calcium (8.5-10.1) mg/dL Magnesium mg/dL Total Bilirubin (0.2-1.0) mg/dL AST (15-37) U/L ALT (16-63) U/L Alkaline Phosphatase (46-116) U/[place]roponin I 22336 H* (<or=76) ng/L C-Reactive Protein (<or=0.5) mg/dL Total Protein (6.4-8.2) g/dL Albumin (3.4-5.0) g/dL Lipase (<78) U/L Procalcitonin ng/mL COVID-19 Source Pending SARS-CoV-2 (PCR) Pending (Negative) Influenza Type A (PCR) Pending (Negative) Influenza Type B (PCR) Pending (Negative) RSV (PCR) Pending (Negative) 08/03/24 08/03/24 08/03/24 Range/Units 20:57 19:27 18:25 WBC 8.05 (4.4-10.8) 10^3/uL RBC 4.87 (4.36-5.78) 10^6/uL Hgb 15.2 (13.5-17.5) g/dL Hct 45.0 (40.0-50.0) % MCV 92 (80-95) fL MCH 31.2 (27.0-33.0) pg MCHC 33.8 (32.0-36.0) % RDW 11.9 (11.8-14.1) % Plt Count 190 (130-400) 10^3/uL MPV 10.5 (8.0-11.0) fL Immature Gran % 0.2 % Neutrophils % 74.8 % Lymphocytes % 13.9 % Monocytes % 9.4 % Eosinophils % 1.5 % Basophils % 0.2 % Nucleated RBC % 0.0 (0.0-0.3) % Absolute Neutrophils 6.01 (1.2-6.7) 10^3/uL Absolute Lymphocytes 1.12 L (1.2-3.4) 10^3/uL Absolute Monocytes 0.76 (0.1-0.8) 10^3/uL Absolute Eosinophils 0.12 (0.0-0.7) 10^3/uL Absolute Basophils 0.02 (0.0-0.2) 10^3/uL ESR 2 (0-15) mm/hr PT (9.1-11.1) sec INR (0.9-1.1) APTT (20.6-30.2) sec D-Dimer 265 (<500) ng/mlFEU Sodium 143 (136-145) mmol/L Potassium 3.7 (3.5-5.1) mmol/L Chloride 106 (98-107) mmol/L Carbon Dioxide 28.5 (21.0-32.0) mmol/L Anion Gap 8.5 (3-11) mmol/L BUN 13 (7-18) mg/dL Creatinine 0.9 (0.70-1.30) mg/dL Est GFR (CKD-EPI 2020) 119.31 (mL/min/1.73m2) Glucose 118 H (74-106) mg/dL Calcium 9.1 (8.5-10.1) mg/dL Magnesium 1.8 mg/dL Total Bilirubin 0.4 (0.2-1.0) mg/dL AST 40 H (15-37) U/L ALT 45 (16-63) U/L Alkaline Phosphatase 62 (46-116) U/[place] Troponin I 96536 H* 90462 H* (<or=76) ng/L C-Reactive Protein 0.93 H (<or=0.5) mg/dL Total Protein 6.9 (6.4-8.2) g/dL Albumin 3.8 (3.4-5.0) g/dL Lipase 40 (<78) U/L Procalcitonin < 0.10 ng/mL COVID-19 Source Nasopharynx SARS-CoV-2 (PCR) Negative (Negative) Influenza Type A (PCR) Negative (Negative) Influenza Type B (PCR) Negative (Negative) RSV (PCR) Negative (Negative) 08/03/24 19:51 Blood Culture - Pending Blood 08/03/24 19:27 Blood Culture - Pending Blood Intake and Output - 24 Hour Total 08/03/24 17:40 thru 08/03/24 18:29 Intake Total 10 Balance 10 Weight 83.461 kg Intake: IV 10 Falls Risk Assessment History of Falls No History 08/03/24 18:30 Contributing Factors No Factors 08/03/24 18:30 Ambulatory Aids Independent 08/03/24 18:30 Tubes/Lines W/no contributing factors 08/03/24 18:30 Gait Evaluation No gait disturbance 08/03/24 18:30 Cognition No cognitive impairment 08/03/24 18:30 Fall Total Score 10 08/03/24 18:30 Level of Risk Standard/Low Risk 08/03/24 18:30 Problems (Last Reviewed 08/03/24 @ 22:09 by Jimmy Ching) Chest pain (Acute) Elevated troponin I level (Acute) v v v v v v v v v Sending and/or Receiving Nurses: Please use comment section below to note any information pertinent to the patient hand-off not included above. Information / Comments: Report received from: Kristy Summers RN
[2024-08-04] VITALS (61 sets, daily range): BP systolic 98–127; BP diastolic 58–79; PULSE 56–106; RESP 7–38; TEMP 36.8; O2SAT 95–99
[2024-08-04 00:04] LABS: TSH 1.22 uIU/mL (0.36-3.74)
[2024-08-04 04:18] LABS: HCT 40.5 % (40.0-50.0); HGB 13.7 g/dL (13.5-17.5); MCH 31.6 pg (27.0-33.0); MCHC 33.8 % (32.0-36.0); MCV 93 fL (80-95); MPV 10.4 fL (8.0-11.0); Platelet Count 186 10^3/uL (130-400); RBC 4.34 10^6/uL (4.36-5.78); RDW 11.9 % (11.8-14.1); RDW-SD 41.5 fL; WBC 5.36 10^3/uL (4.4-10.8)
[2024-08-04 04:28] LABS: PTT Activated 41.9 sec (20.6-30.2)
[2024-08-04 04:29] LABS: ALT 42 U/L (16-63); AST 38 U/L (15-37); Albumin 3.2 g/dL (3.4-5.0); Alkaline Phosphatase 55 U/L (46-116); Anion Gap 6.8 mmol/L (3-11); BUN 10 mg/dL (7-18); Bilirubin, Total 0.4 mg/dL (0.2-1.0); CO2 30.2 mmol/L (21.0-32.0); CREATININE 0.9 mg/dL (0.70-1.30); Calcium 8.7 mg/dL (8.5-10.1); Chloride 107 mmol/L (98-107); Estimated GFR 119.31 (mL/min/1.73m2); Glucose 100 mg/dL (74-106); Potassium 3.8 mmol/L (3.5-5.1); Sodium 144 mmol/L (136-145)
[2024-08-04 04:40] LABS: Calculated LDL 61 mg/dL (<100); Cholesterol 137 mg/dL (<200); HDL Cholesterol 61 mg/dL (>or=40); Triglyceride 79 mg/dL (<150)
[2024-08-04 05:14] LABS: *AMPHETAMINES SCREEN URINE Negative (Negative); *BARBITURATES SCREEN URINE Negative (Negative); *BENZODIAZEPINES SCREEN URINE Negative (Negative); Cannabinoids THC Negative (Negative); Cocaine Screen,Urine Negative (Negative); METHADONE URINE SCREEN Negative (Negative); OPIATES URINE SCREEN Negative (Negative); Tricyclic Antidepressants Negative (Negative)
[2024-08-04 06:20] LABS: Troponin I 12514 ng/L (<or=76)
[2024-08-04] MEDS: Normal Saline Flush 10 ML SYR IVP (08:08)
--- NOTE | 2024-08-04 09:12 | INITIAL_ITS ---
Date of service: 08/04/24 Time of Service: 09:30 Care Management Initial Assmt Initial Assessment Reason for Hospitalization: Atypical Chest pain Functional Status/Living Situation Patient Presentation: Kevin was awake and lying in bed when CM met with him. He is accompanied by his Tamika, both are pleasant and patiently waiting for him to be transferred [facility]. Kevin lives with his and children in [facility]. He is employed at [employer] and is active and independent at baseline. Town of Residence: [facility] Resides with: Child and Spouse (Tamika Pineda) Significant Other/Family: Local Employment Status: Employed Instrumental Activities of Daily Living (ADLs): Independent Medications Medication Management: No Issues/Barriers identified Physical Functioning/Mobility Assistive Device: None Advance Directives Advance Directives: Do you have an Advance Directive: N 07/01/13 20:58 AD On File at [facility]: N 08/03/12 16:41 Date Asked 08/03/24 08/03/24 19:56 AD Date Reviewed COLST On File at [facility] COLST Date Scanned Code Status Resuscitation Status Full Code Insurance Coverage/Financial Issues Insurance: Medicaid Care Team Visit Care Team Role Provider Type Meet Perez MD MD [facility] STAFF PHYSICIAN Karo Hogan MD Primary Care Provider [facility] STAFF PHYSICIAN Alisa Smith, LANE Emergency Provider NURSE PRACTITIONER Jimmy Ching Admit Provider NON-[facility] STAFF PHYSICIAN Attending Provider Discharge Potential Discharge Needs: PCP F/U Appt Anticipated Barriers to Discharge: None Identified Patient/Family Education Needs: Review discharge instructions, discuss Ask Me Three Transportation: Private vehicle Plan: Kevin is admitted to [facility] with atypical chest pain with elevated troponin and requires transfer to a tertiary medical center. He is accepted to Dr. Garcia's services at [facility], pending bed availability. In the meantime, he will remain in the ICU for close monitoring; and Heparin at the recommendation of [facility]. Transportation will be coordinated by RN heat treat supervisor when ETA of transfer is known. CM will follow. Social Determinants of Health Screening Will the Patient Participate in the Screening?: Unable to obtain PFSH All Active Problems (Updated 08/04/24 @ 00:52 by Jimmy Ching) Atypical chest pain (Acute) Chest pain (Acute) Elevated troponin I level (Acute) Closed boxer's fracture (Acute 05/04/19) Social History Smoking/Tobacco Use Status: Current every day Tobacco Type: e-cigarettes Smoking risk assessment performed?: Yes Alcohol Intake: current Alcohol Intake frequency: a few times a week Drug use: Never Substance use type: does not use Housing: house Do you feel safe at home: Yes Do you feel safe in your relationship?: Yes
[2024-08-04 10:47] LABS: PTT Activated 59.2 sec (20.6-30.2)
--- NOTE | 2024-08-04 13:17 | DSE_ITS ---
Date of service: 08/04/24 Time of Service: 13:18 DS: Diagnosis Discharge Diagnosis (1) Atypical chest pain: Status: Acute (2) Elevated troponin I level: Status: Acute Discharge Plan Disposition Patient Disposition: Transfer-Acute Inpatient Care Specific Acute Inpt Facility: [facility] Condition: Good Discharge Details Reason For Visit: Elevated troponin with chest pain Admit Date/Time: 08/03/24 22:16 Admit Provider: Jimmy Ching Attending Provider: Jimmy Ching Primary Care Provider: Karo Hogan [facility] Course Hospital Course: Patient initially presented with signs and symptoms of chest pain that was ultimately determined to potentially be secondary to NSTEMI. EKG was unchanged patient had significantly elevated troponin without alternate explanation. Patient's case was discussed with [facility] cardiology who recommended hepari nization, and accepted the patient for transfer once a bed was available. Patient remained chest pain-free during hospitalization and ultimately a bed was available on the afternoon of 08/04/2024 the patient will be transferred to [facility] cardiology for further treatment and evaluation. Home Meds and New Rx's Prescriptions: No Action No Known Home Meds Discharge Instructions Activity:: Activity as Tolerated Equipment/Supplies:: No Equipment Needed Diet:: As Tolerated Discharge Orders Discharge Orders: Discharge Order (Routine); Ordered 08/04/24 Ordered By: Meet Perez DS: Summary Time Spent with Patient providing and/or coordinating discharge services: Greater than 30 minutes Status at Discharge Functional status at discharge: independent ambulation Overall status at discharge: patient is back to baseline Mental Status: mental status grossly normal Speech and Movement: speech and movement normal Mood: congruent mood Affect: normal affect Quality:SDOH Health Related Social Needs: No Data to Display Exam Narrative Exam Narrative: well appearing young gentleman laying in bed in no acute dsitress, AOx4, heart RRR, lungs CTAB, abdomen soft, non-tender, non-distended Psych Mental Status: mental status grossly normal Speech and Movement: speech and movement normal Mood: congruent mood Affect: normal affect DS: Data Vitals/I&O Vitals and I&O: Vital Signs Temperature 98.2 F 08/04/24 12:00 Temperature Source Temporal Artery Scan 08/04/24 12:00 Pulse 79 08/04/24 12:01 Pulse 89 08/04/24 12:01 Respiratory Rate 19 08/04/24 12:01 Respiratory Effort Normal, Non-Labored 08/03/24 23:30 Respiratory Depth Normal 08/03/24 23:30 Respiratory Pattern Normal 08/03/24 23:30 Blood Pressure 112/69 08/04/24 12:01 Blood Pressure Mean 82 08/04/24 12:01 Blood Pressure Position Supine 08/03/24 23:30 Pulse Oximetry 97 08/04/24 12:01 Oxygen Delivery Method Room Air 08/04/24 12:00 Oxygen Flow Rate 0 08/04/24 12:00 Pain Level 4 08/03/24 18:28 Intake & Output 08/03/24 08/04/24 08/04/24 17:59 05:59 17:59 Intake Total 558.667 / 558.667 72.067 / 72.067 Output Total 1250 / 1250 400 / 400 Balance -691.333 / -691.333 -327.933 / -327.933 Weight 184 lb 185 lb 3.013 oz Intake: IV 78.667 / 78.667 72.067 / 72.067 Oral 480 / 480 Output: Urine 750 / 750 400 / 400 Stool 500 / 500 Other: Urine Color Dark Lilibeth Yellow Urine Appearance Clear Clear Urine Odor None Stool Occult Blood Negative Stool Size Large Stool Characteristics Soft Brown Data Completed and Pending Labs on day of discharge: Labs from last 24 hours 08/04/24 08/04/24 08/04/24 17:00 10:20 04:05 WBC RBC Hgb Hct MCV MCH MCHC RDW Plt Count MPV Immature Gran % Neutrophils % Lymphocytes % Monocytes % Eosinophils % Basophils % Nucleated RBC % Absolute Neutrophils Absolute Lymphocytes Absolute Monocytes Absolute Eosinophils Absolute Basophils ESR PT INR APTT Pending 59.2 H D-Dimer Sodium Potassium Chloride Carbon Dioxide Anion Gap BUN Creatinine Est GFR (CKD-EPI 2020) Glucose Calcium Magnesium Total Bilirubin AST ALT Alkaline Phosphatase Troponin I C-Reactive Protein Total Protein Albumin Triglycerides Total Cholesterol LDL Cholesterol, Calc HDL Cholesterol Lipase Procalcitonin TSH Urine Opiates Screen Negative Urine Methadone Screen Negative Ur Barbiturates Screen Negative Ur Tricyclics Screen Negative Ur Amphetamines Screen Negative U Benzodiazepines Scrn Negative Urine Cocaine Screen Negative Ur THC Screen Negative COVID-19 Source SARS-CoV-2 (PCR) Influenza Type A (PCR) Influenza Type B (PCR) RSV (PCR) 08/04/24 08/03/24 08/03/24 04:00 22:16 21:25 WBC 5.36 RBC 4.34 L Hgb 13.7 Hct 40.5 MCV 93 MCH 31.6 MCHC 33.8 RDW 11.9 Plt Count 186 MPV 10.4 Immature Gran % Neutrophils % Lymphocytes % Monocytes % Eosinophils % Basophils % Nucleated RBC % Absolute Neutrophils Absolute Lymphocytes Absolute Monocytes Absolute Eosinophils Absolute Basophils ESR PT INR APTT 41.9 H D-Dimer Sodium 144 Potassium 3.8 Chloride 107 Carbon Dioxide 30.2 Anion Gap 6.8 BUN 10 Creatinine 0.9 Est GFR (CKD-EPI 2020) 119.31 Glucose 100 Calcium 8.7 Magnesium Total Bilirubin 0.4 AST 38 H ALT 42 Alkaline Phosphatase 55 Troponin I [address] H* 47161 H* C-Reactive Protein Total Protein 6.0 L Albumin 3.2 L Triglycerides 79 Total Cholesterol 137 LDL Cholesterol, Calc 61 HDL Cholesterol 61 H Lipase Procalcitonin TSH Urine Opiates Screen Urine Methadone Screen Ur Barbiturates Screen Ur Tricyclics Screen Ur Amphetamines Screen U Benzodiazepines Scrn Urine Cocaine Screen Ur THC Screen COVID-19 Source Cancelled SARS-CoV-2 (PCR) Cancelled Influenza Type A (PCR) Cancelled Influenza Type B (PCR) Cancelled RSV (PCR) Cancelled 08/03/24 08/03/24 08/03/24 21:21 20:57 19:27 WBC RBC Hgb Hct MCV MCH MCHC RDW Plt Count MPV Immature Gran % Neutrophils % Lymphocytes % Monocytes % Eosinophils % Basophils % Nucleated RBC % Absolute Neutrophils Absolute Lymphocytes Absolute Monocytes Absolute Eosinophils Absolute Basophils ESR PT 11.0 INR 1.1 APTT 25.6 D-Dimer Sodium Potassium Chloride Carbon Dioxide Anion Gap BUN Creatinine Est GFR (CKD-EPI 2020) Glucose Calcium Magnesium Total Bilirubin AST ALT Alkaline Phosphatase [place]roponin I [address] H* C-Reactive Protein Total Protein Albumin Triglycerides Total Cholesterol LDL Cholesterol, Calc HDL Cholesterol Lipase Procalcitonin TSH Urine Opiates Screen Urine Methadone Screen Ur Barbiturates Screen Ur Tricyclics Screen Ur Amphetamines Screen U Benzodiazepines Scrn Urine Cocaine Screen Ur THC Screen COVID-19 Source Nasopharynx SARS-CoV-2 (PCR) Negative Influenza Type A (PCR) Negative Influenza Type B (PCR) Negative RSV (PCR) Negative 08/03/24 18:25 WBC 8.05 RBC 4.87 Hgb 15.2 Hct 45.0 MCV 92 MCH 31.2 MCHC 33.8 RDW 11.9 Plt Count 190 MPV 10.5 Immature Gran % 0.2 Neutrophils % 74.8 Lymphocytes % 13.9 Monocytes % 9.4 Eosinophils % 1.5 Basophils % 0.2 Nucleated RBC % 0.0 Absolute Neutrophils 6.01 Absolute Lymphocytes 1.12 L Absolute Monocytes 0.76 Absolute Eosinophils 0.12 Absolute Basophils 0.02 ESR 2 PT INR APTT D-Dimer 265 Sodium 143 Potassium 3.7 Chloride 106 Carbon Dioxide 28.5 Anion Gap 8.5 BUN 13 Creatinine 0.9 Est GFR (CKD-EPI 2020) 119.31 Glucose 118 H Calcium 9.1 Magnesium 1.8 Total Bilirubin 0.4 AST 40 H ALT 45 Alkaline Phosphatase 62 Troponin I [address] H* C-Reactive Protein 0.93 H Total Protein 6.9 Albumin 3.8 Triglycerides Total Cholesterol LDL Cholesterol, Calc HDL Cholesterol Lipase 40 Procalcitonin < 0.10 TSH 1.22 Urine Opiates Screen Urine Methadone Screen Ur Barbiturates Screen Ur Tricyclics Screen Ur Amphetamines Screen U Benzodiazepines Scrn Urine Cocaine Screen Ur THC Screen COVID-19 Source SARS-CoV-2 (PCR) Influenza Type A (PCR) Influenza Type B (PCR) RSV (PCR) 08/03/24 19:51 Blood Blood Culture - Pending 08/03/24 19:27 Blood Blood Culture - Pending Preliminary micro results at discharge 08/03/24 19:51 Blood Culture - Pending Blood 08/03/24 19:27 Blood Culture - Pending Blood PFSH All Active Problems (Updated 08/04/24 @ 00:52 by Jimmy Ching) Atypical chest pain (Acute) Chest pain (Acute) Elevated troponin I level (Acute) Closed boxer's fracture (Acute 05/04/19) Social History Smoking/Tobacco Use Status: Current every day Tobacco Type: e-cigarettes Smoking risk assessment performed?: Yes Alcohol Intake: current Alcohol Intake frequency: a few times a week Drug use: Never Substance use type: does not use Housing: house Do you feel safe at home: Yes Do you feel safe in your relationship?: Yes Time Spent with Patient Time Spent with Patient: <45 minutes Time was spent: preparing to see the patient(eg.review tests), obtaining and/or reviewing separately otained hiistory, ordering medications,tests, procedures, referring, communicating with other health care consultant, indepentently interpreting results, counseling the patient and care coordination
--- NOTE | 2024-08-04 13:26 | CMDISCH_ITS ---
Date of service: 08/04/24 Time of Service: 13:26 LACE Index Scoring Tool Questions: Length of Stay (in days): 1 Was the patient admitted via the E.D.?: Yes E.D. Visits: 1 Answers: Total Score: 5 Risk of Readmission: Low Risk Care Management Discharge Plan Reason for Hospitalization: Atypical chest pain, elevated troponin Discharge Plan: Transfer to [facility] via EMS, coordinated by RN supervisory lifeguard. Patient/Family Education Needs: Review transfer information and plan, discuss ask me three. Services Needed at Discharge: Transportation (EMS) [facility] Health Related Social Needs: No Data to Display
--- NOTE | 2024-08-04 13:26 | PDOC.CMDIS ---
Date of service: 08/04/24 Time of Service: 13:26 LACE Index Scoring Tool Questions: Length of Stay (in days): 1 Was the patient admitted via the E.D.?: Yes E.D. Visits: 1 Answers: Total Score: 5 Risk of Readmission: Low Risk Care Management Discharge Plan Reason for Hospitalization: Atypical chest pain, elevated troponin Discharge Plan: Transfer to [facility] via EMS, coordinated by RN supervisor silvering department. Patient/Family Education Needs: Review transfer information and plan, discuss ask me three. Services Needed at Discharge: Transportation (EMS) [facility] Health Related Social Needs: No Data to Display
[2024-08-04] MEDS: Heparin in 0.45% NaCl 25,000 UNIT/250 ML BAG 11.5 UNIT IVINF (13:50)
== END 2024-08-04 14:15 | disposition short-term general hospital (02) | DRG 313 ==
LOC: ER 21:58 → ICU 22:48
PROVIDERS: Admitting Provider Family Medicine; Emergency Provider Registered Nurse Emergency; PCP Family Medicine; Responsible Provider Family Medicine; Visit Provider Family Medicine
DX: R07.89 Other chest pain (principal); R74.8 Abnormal levels of other serum enzymes; R11.0 Nausea; F17.290 Nicotine dependence, other tobacco product, uncomplicated; R94.31 Abnormal electrocardiogram [ECG] [EKG]
CPT/HCPCS: 00123; 36415; 71275; 80053; 80061; 80307; 83690; 84145; 85027; 85652; 87040; 87637; 93005; 93308; 96365; 99291; 71046; 74174; 83735; 84443; 84484; 85025; 85379; 85610; 85730; 86140; 93010; 99223; 99239; J1644; J3490

== ENCOUNTER 2024-10-14 11:21 | Emergency (ER) | payer MEDICAID, SELFPAY ==
[2024-10-14 11:22] VITALS: BP 129/70; PULSE 89; RESP 16; TEMP 36.7; O2SAT 98
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
[2024-10-14 13:18] VITALS: BP 122/64; PULSE 90; RESP 14; O2SAT 99
== END 2024-10-14 13:19 | disposition home or self-care (01) ==
PROVIDERS: Emergency Provider Student in an Organized Health Care Education/Training Program; PCP Family Medicine
DX: S06.0X0A Concussion without loss of consciousness, initial encounter (principal); S60.221A Contusion of right hand, initial encounter; S50.01XA Contusion of right elbow, initial encounter; F17.290 Nicotine dependence, other tobacco product, uncomplicated; V28.49XA Other motorcycle driver injured in noncollision transport accident in traffic accident, initial encounter
CPT/HCPCS: 76604; 76705; 76857; 99284; 73080; 73130